=== PATIENT | female | born 1990 | race Caucasian/White ===

== ENCOUNTER 2024-06-25 20:31 | Inpatient (IN) ==
--- NOTE | 2024-06-25 21:06 | History & Physical Report ---
Date of Service June 25, 2024 Assessment & Plan (1) Breech presentation: (2) SROM (spontaneous rupture of membranes): Plan 33 yo G1 at 39 3/7 wga presents with SROM, breech VSS Fetus cat 1 Discussed indications, risks, benefits, alternatives with risks including infection, bleeding, injury to adjacent structures (bowel, bladder, ureters, blood vessels, nerves, baby), possible need for blood transfusion and/or life saving hysterectomy, VTE. Consent reviewed in detail w/ pt and signed after all questions answered to her satisfaction. For ancef and azithromycin for ppx antibx History of Present Illness Chief Complaint: SROM Primary Care Provider: Valencia Og MD 33 yo G1 at 39 3/7 wga presents with SROM, breech. SROM around 745pm. 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 denies hx stis Allergies Allergy/AdvReac Type Severity Reaction Status Date / Time No Known Allergies Allergy Verified 06/25/24 21:00 Home Medications Medication Instructions Recorded Confirmed Type magnesium glycinate 100 mg (as 400 mg PO DAILY 08/27/22 06/25/24 History glycinate) tablet digital therapeutic,DANNY device 11/11/23 06/23/24 History prenat.vits,cynthia,hfh-hzmy-qpkzs 1 tab PO QAM 11/11/23 06/25/24 History sumatriptan 20 mg/actuation nasal 20 mg intranasal Q2H PRN migraine 11/11/23 06/25/24 Rx spray headache 30 days #6 ea Patient History Medical History Anxiety Occasional History of asthma As child, "resolved" History of COVID-19 Moderate cold symptoms > resolved Migraines Surgical History S/P tonsillectomy S/P wisdom tooth extraction Family History Aunt Ovarian cancer Father Anxiety Sister Anxiety Endometriosis Family history of reaction to anesthesia Sister had "coded after having an oopherectomy" in 2020 at [facility], had testing after and had inconclusive findings. No personal anesthesia reactions noted per patient. Mother Osteoporosis Denies family history of Prostate cancer Myocardial infarction Breast cancer Colorectal cancer Social History Smoking Status: Never smoker Second Hand Exposure: No; Do You Dip or Chew Tobacco: No; Hx Alcohol Use: Yes (not currently, due to ) Alcohol type: beer, wine and hard liquor Alcohol Intake Frequency: 2-3 x/Week Hx Substance Use: No Preferred Language: [place] Island[place] Communication Ability: Effective Visual Impairment: No Limitations Hearing Ability: Normal Director Of Reimbursement Required: No Beliefs That Will Affect Care: None marital status: marital status details: Rony (32) [phone] Current Living Situation: Spouse Current Living Situation Comment: lives with spouse, 1 dog. 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 Other Information That Helps Us Care for You: No Feels Safe at Home: Yes Safety Concerns: Feels Safe At This Time Childhood Exposure to Second-Hand Smoke: No Diet: regular caffeine: Yes during the past year weight has: remained stable Dental Care, Regularly: Yes Physical Activity Frequency: Daily Seatbelt Use: always Sunscreen Use: Yes Assistive Devices: None Physical Exam Genitourinary: OB Exam Abdomen: + breech (confirmed on us) Manual OB Exam: + cervical dilation fingertip, + cervical effacement 50%, + station -2 and + amniotic fluid (grossly ruptured) OB Exam Monitor Tracing: + external FHT monitor used, + external uterine monitor used (irreg) and + category I (150/mod/+accel/-decel) Results & Data Vital Signs (Past 12 Hours) Vital Signs Pulse BP 06/25/24 20:59 86 137/76 Laboratory Results OB Labs: Blood Type O Positive 11/18/23 Antibody Screen NEGATIVE 11/18/23 Hgb 11.5 g/dl (12.0-16.0) L 04/14/24 Hct 34.4 % (37.0-47.0) L 04/14/24 MCV 88.6 fL (80.0-100.0) 11/18/23 Plt Count 269 K/uL (130-400) 11/18/23 Rubella IgG Antibody Non Immune (Immune) L 11/18/23 Treponema pallidum Ab Negative (Negative) 04/14/24 Hep Bs Antigen Negative (Negative) 11/18/23 Hepatitis C Antibody Negative (Negative) 11/18/23 HIV 1&2 Ab/P24 Ag 4thGn Negative (Negative) 11/18/23 Glucose 1 Hr 50 gm 95 mg/dl (70-130) 04/14/24 OB Optional Labs: Chlamydia trachomatis RNA Not Detected (NotDetected) 11/18/23 Neisseria gonorrhoeae RNA Not Detected (NotDetected) 11/18/23 Labs Reviewed: cfdna-low risk--mln gbs neg Diagnostic Findings ant plac Coding Level of Care Code None Diagnoses Breech presentation O32.1XX0 SROM (spontaneous rupture of membranes)
[2024-06-25] MEDS: LACTATED RINGER'S 1,000 ML IV SCH (21:18)
[2024-06-25] MEDS: AZITHROMYCIN 500 MG/255 ML BAG IV SCH (21:21)
[2024-06-25] MEDS: ACETAMINOPHEN 500 MG TAB PO SCH (21:26)
[2024-06-25] MEDS: CITRIC ACID/SODIUM CITRATE 15 ML UDC PO SCH (21:35)
[2024-06-25] MEDS ORDERED: ONDANSETRON INJ 2 MG/ML 2 ML VIAL IV PRN ×2 (21:35→23:54)
[2024-06-25] MEDS ORDERED: fentaNYL citrate PF 100 MCG/2 ML VIAL IV PRN (21:35)
[2024-06-25] MEDS ORDERED: ATROPINE SULFATE 0.1 MG/ML 10ML SYR IV PRN (21:35)
[2024-06-25] MEDS ORDERED: ePHEDrine sulfate 50 MG/ML AMP IV PRN ×2 (21:35→23:54)
[2024-06-25] MEDS ORDERED: HYDROmorphone INJ 1 MG/ML SYRINGE IV PRN (21:35)
--- NOTE | 2024-06-25 21:35 | Anesthesiology Consultation ---
Date of Service June 25, 2024 Assessment & Plan Chart Review Chart Review: Acceptable Risk for Surgery and Patient NOT seen in Pre Admission Testing ASA ASA2E Proposed Anesthesia Anesthesia Type: Spinal Risk / Benefits Reviewed With: PT / POA / Parent / Guardian, Accepts Plan and Informed Consent Obtained History Surgery Operation Date: 06/25/24 21:30 Proposed Procedures p Section in LD - Itzel Santizo MD Height/Weight Height: 5 ft 8 in Weight: 80.739 kg Allergies Allergy/AdvReac Type Severity Reaction Status Date / Time No Known Allergies Allergy Verified 06/25/24 21:00 Medications Home Medications Medication Instructions Recorded Confirmed Last Taken magnesium glycinate 100 mg (as 400 mg PO DAILY 08/27/22 06/25/24 06/24/24 glycinate) tablet digital therapeutic,DANNY device 11/11/23 06/23/24 Unknown prenat.vits,cynthia,yrp-lkxb-trjyw 1 tab PO QAM 11/11/23 06/25/24 06/24/24 sumatriptan 20 mg/actuation nasal 20 mg intranasal Q2H PRN migraine 11/11/23 06/25/24 Unknown spray headache 30 days #6 ea Active Medications Generic Name Dose Route Start Last Admin Trade Name Freq PRN Reason Stop Dose Admin Acetaminophen 1,000 mg 06/25/24 21:05 06/25/24 21:26 Acetaminophen 500 Mg Tab PO 06/26/24 05:59 1,000 mg PREOP FIDELINA Administration Lactated Ringer's 1,000 mls @ 999 mls/hr 06/25/24 21:00 06/25/24 21:18 Lr IV 06/25/24 22:00 999 mls/hr .Q1H1M FIDELINA Administration Azithromycin 500 mg in 255 mls @ 127.5 mls/hr 06/25/24 21:15 06/25/24 21:21 Zithromax IV 06/26/24 05:59 127.5 mls/hr PREOP FIDELINA Administration NPO Date Last Intake of Fluids: 06/25/24 Time Last Intake of Fluids: 18:30 Date Last Intake of Solids: 06/25/24 Time Last Intake of Solids: 20:00 Past Medical History Medical History History of COVID-19 Moderate cold symptoms > resolved History of asthma As child, "resolved" Anxiety Occasional Migraines Exercise / Class Metabolic Activity II 4-5 Yardwork/Stairs/Walk up hill Past Family History Family History Aunt Ovarian cancer Father Anxiety Sister Anxiety Endometriosis Family history of reaction to anesthesia Sister had "coded after having an oopherectomy" in 2020 at [facility], had testing after and had inconclusive findings. No personal anesthesia reactions noted per patient. Mother Osteoporosis Denies family history of Prostate cancer Myocardial infarction Breast cancer Colorectal cancer Past Surgical History Surgical History S/P wisdom tooth extraction S/P tonsillectomy Past Anesthesia History No Hx of Anesthesia Complications and No Family Hx of Anesthesia Complications History of PONV No Hx of PONV and No Hx of Motion Sickness Social History Smoking Status: Never smoker Do You Dip or Chew Tobacco: No Hx Alcohol Use: Yes (not currently, due to ) Alcohol type: beer, wine and hard liquor Hx Substance Use: No substance use type: does not use Review of Systems denies fever/cough/ colds/ chest pain/ SOB/ NARESH denies NARESH Physical Exam Vital Signs Last Vital Signs Temp 36.8 C 06/25/24 21:01 Pulse 86 06/25/24 20:59 Resp 18 06/25/24 21:01 BP 137/76 06/25/24 20:59 ENMT Mouth: no TMJ abnormality and no dentition abnormality Thyromental Distance: > or= 3.5 Finger Breadths Mallampati Class: II Neck neck extension not limited Respiratory normal respiratory effort; no respiratory distress Auscultation: lungs clear to auscultation bilaterally Cardiovascular Rate/Rhythm: regular rate and regular rhythm Neurologic moves all extremities Psychiatric Orientation: alert and oriented x 3
[2024-06-25] MEDS: ceFAZolin 2000MG 2,000 MG/15 ML SYR IV SCH (21:36)
[2024-06-25] MEDS ORDERED: PHENYLEPHRINE HCL 25 MG/250 ML NSS IV ONE (21:39)
[2024-06-25] MEDS ORDERED: fentaNYL citrate PF 100 MCG/2 ML VIAL ONE (21:39)
[2024-06-25] MEDS ORDERED: MoRPHine SULFATE PF 1 MG/ML 10 ML AMP/VIAL ONE (21:39)
[2024-06-25] MEDS ORDERED: OXYTOCIN 10 UNITS/ML VIAL ONE (21:39)
[2024-06-25 21:44] LABS: Hematocrit (blood only) 34.5 % (37.0-47.0); Hemoglobin 11.9 g/dl (12.0-16.0); Mean Corpuscular Hemoglobin 30.2 pg (25.0-34.0); Mean Corpuscular Hgb Conc 34.5 g/dL (32.0-36.0); Mean Corpuscular Volume 87.6 fL (80.0-100.0); Mean Platelet Volume 9.8 fL (9.4-12.4); Platelet Count 247 K/uL (130-400); RDW Coefficient of Variation 12.9 % (11.5-14.5); RDW Standard Deviation 41.1 fL (36.4-46.3); Red Blood Count 3.94 M/uL (4.20-5.40); White Blood Count 8.65 K/ul (4.8-10.8)
[2024-06-25] MEDS ORDERED: ONDANSETRON INJ 2 MG/ML 2 ML VIAL ONE (21:52)
[2024-06-25] MEDS ORDERED: DEXAMETHASONE SOD INJ 4 MG/ML VIAL ONE (21:52)
[2024-06-25] MEDS ORDERED: ePHEDrine sulfate 50 MG/5 ML SYR ONE (22:33)
--- NOTE | 2024-06-25 23:09 | Operative Report ---
Post Operative Report Pre & Post Diagnosis Operation Date: 06/25/24 21:30 Pre-Op Diagnosis: Intrauterine at 39 3/7 wks, Primary section for breech presentation with SROM. Post-Op Diagnosis: Same. I identified the patient and participated in the time-out.: Yes Procedure Operation Date: 06/25/24 21:30 Actual Procedures p Primary Low Transverse Section in LD with the of a live female child at 2227. - Itzel Santizo MD Surgeon Itzel Santizo MD Wheel Grinder ABRAHAN Champion Quantitative Blood Loss (QBL) 477 Findings Consistent with Post-Op Diagnosis Normal appearing uterus, bilateral fallopian tubes and ovaries. Viable female infant with APGARs of 9 and 9 Fluids UOP 100cc by keys catheter Specimens Placenta, cord blood Drains Keys draining clear urine Anesthesia Type Spinal Complications none Disposition Accompanied Patient To Recovery: Yes Disposition: L&D Indications 33 yo G1 at 39 3/7 wga presented with SROM and known breech presentation. Breech presentation was confirmed on arrival and decision was made to proceed with above procedure Description of Procedure The patient was taken to the operating room after consents were ensured. The patient was properly identified. Spinal anesthesia was obtained without difficulty. The patient was placed in a dorsal supine position with left lateral tilt, then prepped and draped in normal sterile fashion. Surgical time out was performed. Antibiotics were given for prophylaxis. Anesthesia was tested to ensure adequate surgical levels. Pfannenstiel skin incision was performed and carried down to the underlying fascia with a knife. The fascia was then nicked in the midline and extended laterally with pickups and Warren scissors. Superior portion of the fascia was grasped with Kochers x2 and elevated off the underlying rectus muscles using blunt dissection. Inferior portion of the fascia was then grasped with Messi clamps x2 and also elevated off the underlying muscles with blunt dissection. Midline was identified. The peritoneum was then entered and extended to provide adequate room for delivery of baby. A hand was inserted into the abdomen, uterus was noted to be clear of adhesions. Bladder blade was inserted, bladder flap was created in the usual fashion. A low transverse uterine incision was made in the uterus and extended bluntly in a superior to inferior fashion. Amniotomy was made with clear fluid at the time of rupture. feet were delivered first and continued to deliver atraumatically to the level of the scapula. Moist blue towel was wrapped around the torso. Arms were swept across the chest atraumatically. head was then delivered with MSV maneuver. Nose and mouth were bulb suctioned on the surgical field. The cord was double clamped and cut, baby was handed off to awaiting pediatrics staff. Cord segment and blood were obtained. Placenta was then expressed from the uterus. The uterus was exteriorized. Several passes were made inside the uterus to remove the remaining membranes. Attention was then turned to the hysterotomy, which was then closed with a running locked suture of 0 Vicryl on a CTX needle. An imbricating layer was then performed using 0-Monocryl. There was noted to be good hemostasis. The posterior cul-de-sac was then inspected and cleaned of clot and debris. The hysterotomy was again inspected and noted to be hemostatic. The uterus was returned to the abdomen. The right and left pericolic gutters were cleaned of all clot and debris. The hysterotomy was again noted to be hemostatic. Space of Retzius was noted to be hemostatic. The fascia was then closed with a running suture of 0 Vicryl on a CT1 needle. Subcutaneous tissue was copiously irrigated and noted to be hemostatic. Subcutaneous tissue was re-approximated using 2-0 plain gut. The skin was then closed with a running suture of 3-0 Monocryl in a subcuticular fashion. At termination of the procedure, fundal pressure was applied and a moderate amount of lochia was expressed. Pressure dressing was kathi lied to the patient. She tolerated the procedure well. All sponge, needle, instrument counts were correct x 2. I attest to the content of the Intraoperative Record and any orders documented therein. Any exceptions are noted below. OB Procedure Charges [id number]
[2024-06-25] MEDS ORDERED: CALCIUM CARBONATE 500 MG CHEWABLE TAB PO PRN (23:23)
[2024-06-25] MEDS ORDERED: MEASLES, MUMPS & RUBELLA VIRUS VACCINE (MMR) 0.5ML VIAL SQ ONE (23:23)
[2024-06-25] MEDS ORDERED: SODIUM CHLORIDE 0.9% 1,000 ML IV SCH (23:23)
[2024-06-25] MEDS ORDERED: MAGNESIUM HYDROXIDE SUSP 30 ML UDC PO PRN (23:23)
[2024-06-25] MEDS ORDERED: BENZOCAINE 20% SPRY 85 APPLN/85 GM CAN EXT PRN (23:23)
[2024-06-25] MEDS ORDERED: diphenhydrAMINE 50 MG/ML VIAL IV PRN ×2 (23:23→23:54)
[2024-06-25] MEDS ORDERED: SENNA 8.6 MG TAB PO PRN (23:23)
[2024-06-25] MEDS ORDERED: LACTATED RINGER'S 1,000 ML IV SCH (23:23)
[2024-06-25] MEDS ORDERED: HYDROCORTISONE ACETATE 25 MG SUPP PR PRN (23:23)
[2024-06-25] MEDS ORDERED: diphenhydrAMINE Capsule 25 MG CAP PO PRN (23:23)
--- NOTE | 2024-06-25 23:30 | Anesthesiology Progress Note ---
Date of Service June 25, 2024 Anesthesia Post Procedure Vital Signs Vital Signs: Temp Pulse Resp BP Pulse Ox 06/25/24 23:29 67 123/65 06/25/24 23:24 71 100 06/25/24 23:19 68 121/57 L 100 06/25/24 23:14 67 100 06/25/24 23:09 78 100 06/25/24 23:08 72 121/56 L 06/25/24 21:01 36.8 C 18 06/25/24 20:59 86 137/76 Transfer of Care Handoff Completed per policy Notes Mental Status: alert / awake / arousable and participated in evaluation Patient Amnestic to Procedure: Yes Nausea / Vomiting: adequately controlled Pain: adequately controlled Airway Patency, RR, SpO2: stable & adequate BP & HR: stable & adequate Hydration State: stable & adequate Anesthetic Complications: no major complications apparent and Pt Satisfied with anesthetic care
[2024-06-25] MEDS: OXYTOCIN 20 UNITS/LR 1,002 ML IV SCH (23:42)
[2024-06-25] MEDS: KETOROLAC 30 MG/ML VIAL IV SCH (23:44)
[2024-06-25] MEDS ORDERED: NO NARCOTICS OR SEDATIVES SCH (23:45)
[2024-06-25] MEDS ORDERED: DC INTRASPINAL MORPHINE SCH (23:45)
[2024-06-25] MEDS: DIPHTHER/TETAN/PERTUS Vaccine (Tdap, Adol/Adult) 0.5mL IM ONE (23:50)
[2024-06-25] MEDS ORDERED: MoRPHine SULFATE 2 MG/ML CARP IV PRN (23:54)
[2024-06-25] MEDS ORDERED: HYDROmorphone INJ 0.5 MG/0.5 ML SYR IV PRN (23:54)
[2024-06-25] MEDS ORDERED: NALOXONE HCL 1 MG in SODIUM CHLORIDE 0.9% 1,000 ML IV PRN (23:54)
[2024-06-25] MEDS ORDERED: NALOXONE HCL 0.4 MG/1 ML VIAL/CARP IV PRN (23:54)
[2024-06-25] MEDS ORDERED: NALBUPHINE HCL INJ 10 MG/ML AMP IV PRN (23:54)
[2024-06-25] MEDS ORDERED: MoRPHine SULFATE PF 1 MG/ML 10 ML AMP/VIAL INT SPINAL ONE (23:54)
[2024-06-25] MEDS ORDERED: NALOXONE HCL 0.08 MG in SYRINGE 1.8 ML IV PRN (23:54)
[2024-06-26] MEDS: LACTATED RINGER'S 1,000 ML IV SCH (02:33)
[2024-06-26] MEDS: ACETAMINOPHEN 325 MG TAB PO SCH (06:18)
[2024-06-26 06:28] LABS: Hematocrit (blood only) 33.4 % (37.0-47.0); Hemoglobin 11.6 g/dl (12.0-16.0); Mean Corpuscular Hemoglobin 30.9 pg (25.0-34.0); Mean Corpuscular Hgb Conc 34.7 g/dL (32.0-36.0); Mean Corpuscular Volume 88.8 fL (80.0-100.0); Mean Platelet Volume 9.8 fL (9.4-12.4); Platelet Count 225 K/uL (130-400); RDW Coefficient of Variation 13.1 % (11.5-14.5); RDW Standard Deviation 42.3 fL (36.4-46.3); Red Blood Count 3.76 M/uL (4.20-5.40); White Blood Count 16.06 K/ul (4.8-10.8)
[2024-06-26 06:55] LABS: Basophils # (auto) 0.02 K/uL (0.00-0.20); Basophils % (auto) 0.1 %; Immature Granulocytes # (auto) 0.13 K/uL (0.01-0.20); Immature Granulocytes % (auto) 0.8 %; Lymphocytes # (auto) 0.76 K/uL (1.20-3.40); Lymphocytes % (auto) 4.7 %; Monocytes # (auto) 0.59 K/uL (0.11-0.59); Monocytes % (auto) 3.7 %; Neutrophils # (auto) 14.56 K/uL (1.40-6.50); Neutrophils % (auto) 90.7 %; Polychromasia 1+
--- NOTE | 2024-06-26 07:28 | Obstetrical Progress Note ---
Date of Service June 26, 2024 Assessment & Plan (1) delivery affecting : (2) Breech presentation: Plan Plan: Both mom and baby doing well. Complains of calf pain(left>right) but no deep pain on squeezing/no edema Continue care as per protocol. Encouraged nursing with mother's milk. Encouraged ambulation. Encouraged deep breathing. Plan to discharge tomorrow Admission and Anticipated Discharge Date Admission Date: June 25, 2024 Supervising Physician Co-Signing Physician Notes Resident Physician Supervision Note: I interviewed and examined the patient. Discussed with Dr. Gardner and agree with findings and plan as documented in the note. Any exceptions or clarifications are listed here: POD1 s/p pCS. Feeling well so far, just had keys removed. notes charjericho horses b/l, L>R. Feels like the ones she got during . Exam benign, legs are nonerythematous and do not appear swollen bilaterally. B/l lower extremities are nontender to palpation. Will encourage ambulation and stretching, aware to let us know if calf pain worsens as would order duplex Documented By: Itzel Santizo MD Subjective 33 years at 39+3. week POG. #1POD following delivery Mom complains of pain in bilateral calf(left>right) Both mom and baby doing well. Mom Lying comfortable on bed. Pain: Mild, intermittent, manageable on painkillers. Lochia: Moderate Diet: Regular OB diet Gas: Not aware of passing, but no abdominal distension Peeing: Not Passed Urine after keys's removal. She just had her keys out Ambulation: to Bathroom/ Corridor without any complication Answered her queries. Review of Systems Review of Systems: As per HPI Physical Exam Physical Exam: General: Alert and oriented. No acute distress. CVS: S1 S2+ No murmurs, regular rhythm. Respiratory: CTA bilaterally. No rhonchi, wheezes, or crackles. No increased work of breathing. Abdomen: Bowel sound +. Soft, nontender Uterus: Fundus firm and palpable few cm below the umbilicus. Incision site looks healthy: Dry, No swelling, Erythema Lower extremities: No LE edema. No Results & Data Vital Signs (Past 12 Hours) Vital Signs Temp Pulse Pulse Resp BP BP Pulse Ox 06/26/24 06:00 18 97 06/26/24 06:00 36.8 C 68 18 116/76 97 06/26/24 03:45 18 96 06/26/24 02:31 18 96 06/26/24 02:31 06/26/24 02:31 36.7 C 69 18 113/67 96 06/26/24 01:09 89 100 06/26/24 01:08 36.7 C 18 06/26/24 01:08 157 H 123/79 06/26/24 01:04 77 100 06/26/24 00:59 74 100 06/26/24 00:58 72 119/64 06/26/24 00:54 72 100 06/26/24 00:49 70 100 06/26/24 00:48 74 117/61 06/26/24 00:44 70 100 06/26/24 00:39 81 100 06/26/24 00:38 18 06/26/24 00:38 82 113/61 06/26/24 00:34 79 100 06/26/24 00:29 77 100 06/26/24 00:28 78 106/60 06/26/24 00:24 81 100 06/26/24 00:19 79 100 06/26/24 00:18 78 118/72 06/26/24 00:14 78 99 06/26/24 00:09 75 100 06/26/24 00:08 36.7 C 18 06/26/24 00:08 80 114/64 06/26/24 00:04 73 100 06/25/24 23:59 76 100 06/25/24 23:58 20 06/25/24 23:58 88 117/64 06/25/24 23:54 71 100 06/25/24 23:49 73 100 06/25/24 23:48 24 06/25/24 23:48 67 118/62 06/25/24 23:44 80 99 06/25/24 23:39 77 100 06/25/24 23:38 18 06/25/24 23:38 71 112/62 06/25/24 23:34 75 100 06/25/24 23:32 36.5 C 18 100 06/25/24 23:29 22 06/25/24 23:29 100 06/25/24 23:29 67 06/25/24 23:29 67 123/65 06/25/24 23:24 71 100 06/25/24 23:19 68 121/57 L 100 06/25/24 23:14 67 100 06/25/24 23:09 78 100 06/25/24 23:08 72 121/56 L 06/25/24 21:01 36.8 C 18 06/25/24 20:59 86 137/76 O2 Del Method 06/26/24 06:00 06/26/24 06:00 Room Air 06/26/24 03:45 06/26/24 02:31 06/26/24 02:31 Room Air 06/26/24 02:31 Room Air 06/26/24 01:09 06/26/24 01:08 06/26/24 01:08 06/26/24 01:04 06/26/24 00:59 06/26/24 00:58 06/26/24 00:54 06/26/24 00:49 06/26/24 00:48 06/26/24 00:44 06/26/24 00:39 06/26/24 00:38 06/26/24 00:38 06/26/24 00:34 06/26/24 00:29 06/26/24 00:28 06/26/24 00:24 06/26/24 00:19 06/26/24 00:18 06/26/24 00:14 06/26/24 00:09 06/26/24 00:08 06/26/24 00:08 06/26/24 00:04 06/25/24 23:59 06/25/24 23:58 06/25/24 23:58 06/25/24 23:54 06/25/24 23:49 06/25/24 23:48 06/25/24 23:48 06/25/24 23:44 06/25/24 23:39 06/25/24 23:38 06/25/24 23:38 06/25/24 23:34 06/25/24 23:32 Room Air 06/25/24 23:29 06/25/24 23:29 06/25/24 23:29 06/25/24 23:29 06/25/24 23:24 06/25/24 23:19 06/25/24 23:14 06/25/24 23:09 06/25/24 23:08 06/25/24 21:01 06/25/24 20:59
[2024-06-26] MEDS: DOCUSATE SODIUM 100 MG CAP PO SCH (08:56)
[2024-06-26] MEDS: PRENATAL VITAMIN 1 TAB PO SCH (08:56)
[2024-06-26] MEDS: SIMETHICONE 80 MG CHEW PO SCH (08:56)
[2024-06-26] MEDS: FERROUS SULFATE 325 MG TAB PO SCH (09:01)
[2024-06-26] MEDS ORDERED: ONDANSETRON INJ 2 MG/ML 2 ML VIAL IV PRN (17:54)
[2024-06-26] MEDS ORDERED: HYDROmorphone INJ 0.5 MG/0.5 ML SYR IV PRN (17:54)
[2024-06-26] MEDS ORDERED: PROMETHAZINE 12.5 MG/50.5 ML BAG IV PRN (17:54)
[2024-06-26] MEDS: bisacodyL 5 MG TABEC PO SCH (20:22)
[2024-06-26 21:19] VITALS: RESP 18
[2024-06-26] MEDS: IBUPROFEN 600 MG TAB PO SCH (22:46)
[2024-06-26] MEDS ORDERED: KETOROLAC 30 MG/ML VIAL IV PRN (23:04)
[2024-06-27 06:28] LABS: Hematocrit (blood only) 30.8 % (37.0-47.0); Hemoglobin 10.2 g/dl (12.0-16.0)
--- NOTE | 2024-06-27 07:50 | Obstetrical Progress Note ---
Date of Service June 27, 2024 Assessment & Plan (1) delivery affecting : (2) Breech presentation: Plan Both mom and baby doing well. Calf pain is better Continue care as per protocol. Encouraged nursing with mother's milk. Encouraged ambulation. Encouraged deep breathing. Ready to discharge today if patient feels ready. Admission and Anticipated Discharge Date Admission Date: June 25, 2024 Supervising Physician Co-Signing Physician Notes Resident Physician Supervision Note: I interviewed and examined the patient. Discussed with Dr. Gardner and agree with findings and plan as documented in the note. Any exceptions or clarifications are listed here: Doing well. Notes she was really sore yesterday. Meeting milestones--voiding, ambulating, pain controlled with oral pain meds. Is 36 hours out. May want d/c today if does really well, otherwise, will likely stay til tomorrow. Plan routine care. Documented By: Pooja Rodriguez MD, FACOG Subjective 33 years at 39+3. week POG. # 2 POD following delivery She reports no calf pain today Both mom and baby doing well. Mom Lying comfortable on bed. Pain: Mild, intermittent, manageable on painkillers. Lochia: Minimal Diet: Regular OB diet Gas: Aware of passing, no abdominal distension Peeing: Normal Ambulation: to Bathroom/ Corridor without any complication Answered her queries. Review of Systems Review of Systems: As per HPI Physical Exam Physical Exam: General: Alert and oriented. No acute distress. CVS: S1 S2+ No murmurs, regular rhythm. Respiratory: CTA bilaterally. No rhonchi, wheezes, or crackles. No increased work of breathing. Abdomen: Bowel sound +. Soft, nontender Uterus: Fundus firm and palpable few cm below the umbilicus. Incision site looks healthy: Dry, No swelling, Erythema Lower extremities: No LE edema. No Results & Data Vital Signs (Past 12 Hours) Vital Signs Temp Pulse Pulse Resp BP Pulse Ox O2 Del Method 06/27/24 07:44 36.7 C 64 18 101/56 L 98 Room Air 06/26/24 23:10 36.4 C L 62 18 101/61 97 Room Air 06/26/24 20:20 36.6 C 76 18 105/60 98 Room Air
[2024-06-27 12:09] VITALS: BP 97/61; TEMP 97.7; O2SAT 97
[2024-06-27 17:40] VITALS: PULSE 62
[2024-06-27] MEDS: oxyCODONE HCL IR 5 MG TAB (IMMEDIATE RELEASE) PO PRN (18:34)
[2024-06-27] MEDS ORDERED: bisacodyL 10 MG SUPP PR PRN (23:04)
[2024-06-27] MEDS ORDERED: IBUPROFEN 600 MG TAB PO PRN (23:04)
[2024-06-28] MEDS ORDERED: ACETAMINOPHEN 325 MG TAB PO PRN (05:04)
--- NOTE | 2024-06-28 13:20 | Discharge Summary ---
Date of Service June 28, 2024 Admission HPI Per Admitting Provider 33 yo G1 at 39 3/7 wga presents with SROM, breech. SROM around 745pm. 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 - Itzel Santizo MD Hospital Course (1) delivery affecting : (2) Breech presentation: Plan Patient presented with SROM and breech. See operative report for details. Post-op course uncomplicated and she was discharged home on POD2 Coding Level of Care Code None Diagnoses delivery affecting P03.4 Breech presentation O32.1XX0
== END 2024-06-27 18:55 | disposition home or self-care (01) | DRG 788 ==
LOC: OPB 20:31 → 4S1 20:37 → 4E2 06-26 01:35
DX: Z3A.39 39 weeks gestation of pregnancy; Z79.899 Other long term (current) drug therapy; M79.661 Pain in right lower leg; O42.02 Full-term premature rupture of membranes, onset of labor within 24 hours of rupture; O99.893 Other specified diseases and conditions complicating puerperium; M79.662 Pain in left lower leg; O32.1XX0 Maternal care for breech presentation, not applicable or unspecified; Z37.0 Single live birth